=== PATIENT | male | born 1970 | race African-American/Black ===

== ENCOUNTER 2018-11-11 17:25 | Inpatient (IN) | payer OTHER ==
[~2018-11-11] VITALS: Ht 182.9 cm; Wt 98.9 kg
--- NOTE | ~2018-11-11 | EKG ---
[place], [place] ELECTROCARDIOGRAM REPORT NAME: GEOFFREY CASTRO III UNIT #: [id number] ROOM: 525 DOCTOR: AIYANA DRAFT REPORT BIRTHDATE: [birth year] [facility] Test Date: 2018-11-11 Test Time: 17:59:43 Pat Name: GEOFFREY CASTRO Department: Room: [facility] Gender: M Ict Educator: MIKAELA : 1970 Requested By: HERVE MURPHY PA-C Order Number: [id number] Reading MD: Elmer Villalobos MD Measurements Intervals [place] Rate: 84 P: 56 [place]: 153 QRS: 48 QRSD: 91 T: 47 QT: 362 QTc: 428 Interpretive Statements Sinus rhythm No previous ECG available for comparison Electronically Signed On 11-12-2018 13:02:49 PDT by Elmer Villalobos MD CM:EKGRPT:ELECTROCARDIOGRAM REPORT [id number] HERVE MURPHY PA-C EPIPHANY DRAFT REPORT HERVE MURPHY PA-C
[2018-11-11 17:26] VITALS: BP 139/84
[2018-11-11 18:12] LABS: BASO % 0.4 % (0.0-1.0); EOS # 0.1 10*3/uL (0.0-0.4); EOS % 1.9 % (1.0-4.0); HEMATOCRIT 41.8 % (42.0-52.0); HEMOGLOBIN 13.9 g/dl (14.0-18.0); LYMPH # 2.3 10*3/uL (1.3-4.4); LYMPH % 31.2 % (27.0-41.0); MEAN CORPUSCULAR HGB 31.6 pg (27.0-31.0); MEAN CORPUSCULAR HGB CONC 33.3 g/dl (33.0-37.0); MEAN PLATELET VOLUME 9.3 fl (9.6-12.3); MONO # 0.5 10*3/uL (0.1-1.0); MONO % 6.4 % (3.0-9.0); NEUT # 4.4 10*3/uL (2.3-7.9); NEUT % 59.7 % (47.0-73.0); PLATELET COUNT AUTOMATED 250 10*3/uL (130-400); RED CELL DISTRI WIDTH 13.1 % (0-14.5); WHITE BLOOD COUNT 7.4 10*3/uL (4.8-10.8)
[2018-11-11 18:31] LABS: ALBUMIN 3.5 gm/dl (3.1-4.5); ALKALINE PHOSPHATASE 103 U/L (45-117); BUN 15 mg/dl (7-24); CHLORIDE 106 mmol/L (98-107); CREATININE 0.81 mg/dL (0.70-1.30); POTASSIUM 4.2 mmol/L (3.5-5.1); SGOT/AST 45 IU/L (3-35); SGPT/ALT 29 U/L (12-78); SODIUM 137 mmol/L (136-145)
[2018-11-11 18:36] LABS: ACETAMINOPHEN (TYLENOL) < 5.0 ug/ml (10-30)
[2018-11-11 19:16] LABS: URINE AMPHETAMINES < 1000 (1000ng/ml); URINE BARBITURATES > 200 (200ng/ml); URINE BENZODIAZEPINES < 200 (200ng/ml); URINE CANNABINOIDS (THC) < 50 (50ng/ml); URINE COCAINE > 300 (300ng/ml); URINE METHADONE < 300 (300ng/ml); URINE OPIATES < 300 (300ng/ml)
[2018-11-11 19:20] LABS: URINE PHENCYCLIDINE < 25 (25ng/ml)
[2018-11-11 20:34] VITALS: BP 126/68
[2018-11-11] MEDS ORDERED: ESKALITH,LITHI300 MG PO (20:46)
[2018-11-11] MEDS ORDERED: CARAFATE1 G1 PO (20:46)
[2018-11-11] MEDS ORDERED: SEROQUEL400 M1 PO (20:47)
[2018-11-11] MEDS ORDERED: PEPCID20 MG PO (20:48)
[2018-11-11] MEDS ORDERED: NORVASC5 MG PO (20:49)
[2018-11-11] MEDS ORDERED: ALBUTEROL2.5 MG/0.5 INH (20:51)
[2018-11-12] VITALS: BP 112/71
[2018-11-12 04:00] VITALS: BP 120/69
[2018-11-12 04:26] LABS: BILIRUBIN NEGATIVE (NEGATIVE); BLOOD NEGATIVE (NEGATIVE); CLARITY SL CLOUDY (CLEAR); COLOR YELLOW (YELLOW); GLUCOSE NEGATIVE (NEGATIVE); KETONE NEGATIVE (NEGATIVE); LEUKO ESTERASE NEGATIVE (NEGATIVE); NITRITE NEGATIVE (NEGATIVE); SPECIFIC GRAVITY 1.025 (1.005-1.030); UROBILINOGEN 0.2 E.U./dl (0.2-1.0)
[2018-11-12 04:32] LABS: BACTERIA 1+; RBC 0-2 rbc/hpf (0-2)
[2018-11-12 08:00] VITALS: BP 113/78
[2018-11-12 12:00] VITALS: BP 108/57
[2018-11-12 16:00] VITALS: BP 145/78
[2018-11-12 20:00] VITALS: BP 144/89
[2018-11-13] VITALS: BP 114/64
[2018-11-13 09:14] VITALS: BP 134/88
[2018-11-13 12:00] VITALS: BP 137/80
[2018-11-13 16:00] VITALS: BP 110/54
[2018-11-13 20:00] VITALS: BP 120/70
[2018-11-14] VITALS: BP 105/64
[2018-11-14 08:00] VITALS: BP 120/74
[2018-11-14 12:00] VITALS: BP 126/72
[2018-11-14 16:00] VITALS: BP 134/81
[2018-11-14 20:00] VITALS: BP 128/72
[2018-11-15] VITALS: BP 115/67
[2018-11-15 06:08] LABS: HEMOGLOBIN 14.7 g/dl (14.0-18.0); MEAN CELL VOLUME 97.7 fl (80.0-94.0); MEAN CORPUSCULAR HGB 31.2 pg (27.0-31.0); MEAN PLATELET VOLUME 9.1 fl (9.6-12.3); PLATELET COUNT AUTOMATED 300 10*3/uL (130-400); RED BLOOD COUNT 4.71 10*6/uL (4.50-5.90); RED CELL DISTRI WIDTH 13.4 % (0-14.5); WHITE BLOOD COUNT 21.1 10*3/uL (4.8-10.8)
[2018-11-15 06:43] LABS: CREATININE 0.93 mg/dL (0.70-1.30)
[2018-11-15 07:21] LABS: ATYPICAL LYMPHS 1 % (0-0); PLATELET SUFFICIENCY NORMAL (NORMAL); TARGET CELLS FEW; TOTAL CELLS COUNTED 100 #CELLS
[2018-11-15] MEDS ORDERED: NATURE'S BLEND F1 MG PO (12:08)
[2018-11-15] MEDS ORDERED: THERA TABLET400 MCG PO (12:08)
[2018-11-15] MEDS ORDERED: VITAMIN B-1100 M1 PO (12:08)
[2018-11-15] MEDS ORDERED: NICODERM T (12:10)
== END 2018-11-15 13:10 | disposition home or self-care (01) | DRG 896 ==
LOC: ED 17:25 → 5E 19:51 → ICCU 19:51 → EDHOLD 19:51 → ICCU 20:10 → 5E 11-12 13:50
PROVIDERS: Physician Assistant; Student in an Organized Health Care Education/Training Program; ADMIT Internal Medicine
DX: F14.23 Cocaine dependence with withdrawal (principal); G93.41 Metabolic encephalopathy; J45.41 Moderate persistent asthma with (acute) exacerbation; F20.0 Paranoid schizophrenia; F10.231 Alcohol dependence with withdrawal delirium; F17.210 Nicotine dependence, cigarettes, uncomplicated; D53.9 Nutritional anemia, unspecified; J40 Bronchitis, not specified as acute or chronic; F31.9 Bipolar disorder, unspecified; F41.9 Anxiety disorder, unspecified; R74.0 Nonspecific elevation of levels of transaminase and lactic acid dehydrogenase [LDH]; Z71.6 Tobacco abuse counseling; Z81.8 Family history of other mental and behavioral disorders; Z79.899 Other long term (current) drug therapy